=== PATIENT | male | born 1980 | race Native Hawaiian/Other Pacific Islander ===

== ENCOUNTER 2016-05-21 09:59 | Inpatient (IN) | payer OTHER ==
[~2016-05-21 09:59] MED LIST: PERCOCET1 TA3 PO; SOMA350 MG PO; ZANTAC300 MG PO
== END 2016-06-21 09:00 | disposition still patient (30) ==
LOC: PAVC 09:59
PROVIDERS: ADMIT Internal Medicine
DX: Z51.89 Encounter for other specified aftercare (principal)

== ENCOUNTER 2016-06-21 09:00 | Inpatient (IN) | payer OTHER | END 2016-07-22 13:10 | disposition still patient (30) | LOC: PAVC 09:00 | PROVIDERS: ADMIT Internal Medicine | DX: Z51.89 Encounter for other specified aftercare (principal) ==

== ENCOUNTER 2016-06-24 03:23 | Outpatient (CLI) | payer OTHER ==
[2016-06-24 03:52] LABS: PLATELET COUNT 247 K/uL (142-355)
[2016-06-24 03:57] LABS: POTASSIUM 3.6 mmol/L (3.6-5.2); SODIUM 134 mmol/L (136-145)
== END 2016-06-24 04:23 ==
LOC: LAB 03:23
PROVIDERS: Internal Medicine
DX: Z79.899 Other long term (current) drug therapy (principal); Z51.81 Encounter for therapeutic drug level monitoring
CPT/HCPCS: 36415; 80053; 85027

== ENCOUNTER 2016-07-22 13:18 | Inpatient (IN) | payer OTHER | END 2016-08-19 13:24 | disposition still patient (30) | LOC: PAVC 13:18 | PROVIDERS: ADMIT Internal Medicine | DX: Z51.89 Encounter for other specified aftercare (principal) ==

== ENCOUNTER 2016-08-04 16:28 | Outpatient (CLI) | payer OTHER | END 2016-08-04 18:28 | disposition home or self-care (01) | LOC: LAB 16:28 | DX: N39.0 Urinary tract infection, site not specified (principal); Z87.440 Personal history of urinary (tract) infections | CPT/HCPCS: 81000; 87077; 87086; 87088; 87186 ==

== ENCOUNTER 2016-08-08 09:21 | Outpatient (CLI) | payer OTHER ==
[~2016-08-08] VITALS: Ht 175.3 cm; Wt 63.5 kg
[2016-08-08 09:25] VITALS: BP 122/73; TEMP 98
== END 2016-08-08 19:08 | disposition home or self-care (01) ==
LOC: INF 09:21
DX: N39.0 Urinary tract infection, site not specified (principal)
CPT/HCPCS: 96365; 96366; J2185

== ENCOUNTER 2016-08-09 09:18 | Outpatient (CLI) | payer OTHER ==
[~2016-08-09] VITALS: Ht 195.6 cm; Wt 88.5 kg
[2016-08-09 09:25] VITALS: BP 124/78; TEMP 98.8
== END 2016-08-09 19:49 | disposition home or self-care (01) ==
LOC: INF 09:18
DX: N39.0 Urinary tract infection, site not specified (principal)
CPT/HCPCS: 96365; 96366; J2185

== ENCOUNTER 2016-08-10 09:25 | Outpatient (CLI) | payer OTHER ==
[~2016-08-10] VITALS: Ht 195.6 cm; Wt 88.5 kg
[2016-08-10 09:20] VITALS: BP 125/73; TEMP 98.8
== END 2016-08-10 20:11 | disposition home or self-care (01) ==
LOC: INF 09:25
DX: N39.0 Urinary tract infection, site not specified (principal)
CPT/HCPCS: 96365; 96366; J2185

== ENCOUNTER 2016-08-11 09:30 | Outpatient (CLI) | payer OTHER ==
[~2016-08-11] VITALS: Ht 195.6 cm; Wt 88.5 kg
[2016-08-11 09:40] VITALS: BP 114/70; TEMP 98
[2016-08-11 10:30] VITALS: BP 113/71; TEMP 98
== END 2016-08-11 23:40 | disposition home or self-care (01) ==
LOC: INF 09:30
DX: N39.0 Urinary tract infection, site not specified (principal)
CPT/HCPCS: 96365; 96366; J2185

== ENCOUNTER 2016-08-12 09:10 | Outpatient (CLI) | payer OTHER ==
[~2016-08-12] VITALS: Ht 195.6 cm; Wt 88.5 kg
[2016-08-12 09:15] VITALS: BP 136/77; TEMP 98.9
[2016-08-12 10:20] VITALS: BP 125/71; TEMP 98.9
== END 2016-08-12 18:58 | disposition home or self-care (01) ==
LOC: INF 09:10
DX: N39.0 Urinary tract infection, site not specified (principal)
CPT/HCPCS: 96365; J2185

== ENCOUNTER 2016-08-13 09:09 | Outpatient (CLI) | payer OTHER | END 2016-08-13 19:21 | disposition home or self-care (01) | LOC: INF 09:09 | DX: N39.0 Urinary tract infection, site not specified (principal) | CPT/HCPCS: 96365; 96366; J2185 ==

== ENCOUNTER 2016-08-14 09:27 | Outpatient (CLI) | payer OTHER ==
[2016-08-14 09:35] VITALS: BP 133/80; TEMP 98.8
== END 2016-08-14 19:30 | disposition home or self-care (01) ==
LOC: INF 09:27
DX: N39.0 Urinary tract infection, site not specified (principal)
CPT/HCPCS: 96365; 96366; J2185

== ENCOUNTER 2016-08-15 09:17 | Outpatient (CLI) | payer OTHER ==
[2016-08-15 09:15] VITALS: BP 121/75; TEMP 98.1
== END 2016-08-15 19:01 | disposition home or self-care (01) ==
LOC: INF 09:17
DX: N39.0 Urinary tract infection, site not specified (principal)
CPT/HCPCS: 96365; 96366; J2185

== ENCOUNTER 2016-08-16 09:17 | Outpatient (CLI) | payer OTHER ==
[2016-08-16 09:20] VITALS: BP 116/76; TEMP 98.7
== END 2016-08-16 18:57 | disposition home or self-care (01) ==
LOC: INF 09:17
DX: N39.0 Urinary tract infection, site not specified (principal)
CPT/HCPCS: 96365; 96366; J2185

== ENCOUNTER 2016-08-17 10:01 | Outpatient (CLI) | payer OTHER | END 2016-08-17 11:15 | disposition home or self-care (01) | LOC: INF 10:01 | DX: N39.0 Urinary tract infection, site not specified (principal) | CPT/HCPCS: 96365; J2185 ==

== ENCOUNTER 2016-08-19 13:53 | Inpatient (IN) | payer OTHER | END 2016-09-19 08:16 | disposition still patient (30) | LOC: PAVC 13:53 | PROVIDERS: ADMIT Internal Medicine | DX: Z51.89 Encounter for other specified aftercare (principal) ==

== ENCOUNTER 2016-09-02 13:49 | Outpatient (CLI) | payer OTHER | END 2016-09-02 19:15 | disposition home or self-care (01) | LOC: LAB 13:49 | DX: N39.8 Other specified disorders of urinary system (principal) | CPT/HCPCS: 81000 ==

== ENCOUNTER 2016-09-19 08:23 | Inpatient (IN) | payer OTHER | END 2016-10-19 11:01 | disposition still patient (30) | LOC: PAVC 08:23 | PROVIDERS: ADMIT Internal Medicine | DX: Z51.89 Encounter for other specified aftercare (principal) ==

== ENCOUNTER 2016-10-17 14:57 | Outpatient (CLI) | payer OTHER | END 2016-10-17 19:19 | disposition home or self-care (01) | LOC: LAB 14:57 | DX: Z16.24 Resistance to multiple antibiotics (principal) | CPT/HCPCS: 87081 ==

== ENCOUNTER 2016-10-19 11:07 | Inpatient (IN) | payer OTHER ==
[~2016-10-19] VITALS: Ht 185.4 cm; Wt 89.5 kg
== END 2016-11-19 11:13 | disposition still patient (30) ==
LOC: PAVC 11:07
PROVIDERS: ADMIT Internal Medicine
DX: Z51.89 Encounter for other specified aftercare (principal)

== ENCOUNTER 2016-10-21 12:15 | Outpatient (CLI) | payer OTHER ==
[~2016-10-21] VITALS: Ht 185.4 cm; Wt 89.5 kg
[2016-10-21 12:50] LABS: PLATELET COUNT 186 K/uL (142-355)
== END 2016-10-21 19:15 | disposition home or self-care (01) ==
LOC: INF 12:15 → LAB 12:15 → INF 19:15
PROVIDERS: Internal Medicine
DX: R50.9 Fever, unspecified (principal); L53.8 Other specified erythematous conditions; R52 Pain, unspecified
CPT/HCPCS: 81000; 85027; 87040; 96365; J0696

== ENCOUNTER 2016-10-21 13:38 | Outpatient (CLI) | payer OTHER ==
[2016-10-21 15:30] VITALS: BP 106/52; TEMP 100.1
[2016-10-21 16:50] VITALS: BP 109/65; TEMP 99.2
== END 2016-10-21 19:16 | disposition home or self-care (01) ==
LOC: INF 13:38 → RAD 13:38
DX: R50.9 Fever, unspecified (principal); L53.8 Other specified erythematous conditions; R52 Pain, unspecified
CPT/HCPCS: 96365

== ENCOUNTER 2016-10-22 09:03 | Outpatient (CLI) | payer OTHER ==
[~2016-10-22] VITALS: Ht 185.4 cm; Wt 89.4 kg
[2016-10-22 09:18] VITALS: BP 119/83; TEMP 99.3
[2016-10-22 10:08] VITALS: BP 120/73; TEMP 99.2
== END 2016-10-22 11:00 | disposition home or self-care (01) ==
LOC: INF 09:03
DX: L53.8 Other specified erythematous conditions (principal); R50.9 Fever, unspecified
CPT/HCPCS: 96365; 96366; J0696

== ENCOUNTER 2016-10-23 09:16 | Outpatient (CLI) | payer OTHER ==
[~2016-10-23] VITALS: Ht 185.4 cm; Wt 89.4 kg
[2016-10-23 09:20] VITALS: BP 132/67; TEMP 99.1
[2016-10-23 10:15] VITALS: BP 126/75; TEMP 99.1
== END 2016-10-23 11:00 | disposition home or self-care (01) ==
LOC: INF 09:16
DX: M79.661 Pain in right lower leg (principal)
CPT/HCPCS: 96365; 96366; J0696

== ENCOUNTER 2016-10-24 09:49 | Outpatient (CLI) | payer OTHER | END 2016-10-24 11:30 | disposition home or self-care (01) | LOC: INF 09:49 | DX: M79.661 Pain in right lower leg (principal) | CPT/HCPCS: 96365; 96366; J0696 ==

== ENCOUNTER 2016-10-25 10:39 | Outpatient (CLI) | payer OTHER | END 2016-10-25 21:54 | disposition home or self-care (01) | LOC: INF 10:39 | DX: M79.661 Pain in right lower leg (principal) | CPT/HCPCS: 96365; 96366; J0696 ==

== ENCOUNTER 2016-10-26 10:13 | Outpatient (CLI) | payer OTHER ==
[~2016-10-26] VITALS: Ht 185.4 cm; Wt 89.4 kg
[2016-10-26 10:05] VITALS: BP 124/70; TEMP 98.9
[2016-10-26 11:05] VITALS: BP 122/70; TEMP 98.5
== END 2016-10-26 19:21 | disposition home or self-care (01) ==
LOC: INF 10:13
DX: M79.661 Pain in right lower leg (principal); T24.1 Burn of first degree of lower limb, except ankle and foot
CPT/HCPCS: 96365; 96366; J0696

== ENCOUNTER 2016-10-27 10:09 | Outpatient (CLI) | payer OTHER ==
[~2016-10-27] VITALS: Ht 185.4 cm; Wt 89.4 kg
[2016-10-27 10:10] VITALS: BP 123/71; TEMP 98.6
[2016-10-27 11:10] VITALS: BP 120/76; TEMP 98.6
== END 2016-10-27 13:00 | disposition home or self-care (01) ==
LOC: INF 10:09
DX: M79.661 Pain in right lower leg (principal)
CPT/HCPCS: 96365; 96366; J0696

== ENCOUNTER 2016-10-29 10:13 | Outpatient (CLI) | payer OTHER ==
[~2016-10-29] VITALS: Ht 185.4 cm; Wt 89.4 kg
[2016-10-29 10:20] VITALS: BP 134/75; TEMP 98.5
[2016-10-29 11:20] VITALS: BP 126/71; TEMP 98.5
== END 2016-10-29 19:07 | disposition home or self-care (01) ==
LOC: LAB 10:13 → INF 10:13
DX: S81.801A Unspecified open wound, right lower leg, initial encounter (principal)
CPT/HCPCS: 87070; 87077; 87185; 87205; 96365; 96366; J0696

== ENCOUNTER 2016-10-30 09:08 | Outpatient (CLI) | payer OTHER ==
[~2016-10-30] VITALS: Ht 195.6 cm; Wt 89.4 kg
[2016-10-30 09:15] VITALS: BP 145/82
[2016-10-30 10:32] VITALS: BP 130/72; TEMP 98.4
== END 2016-10-30 19:29 | disposition home or self-care (01) ==
LOC: INF 09:08
DX: L03.115 Cellulitis of right lower limb (principal)
CPT/HCPCS: 96365; 96366; J0696

== ENCOUNTER 2016-10-31 10:24 | Outpatient (CLI) | payer OTHER | END 2016-10-31 21:07 | disposition home or self-care (01) | LOC: INF 10:24 | DX: L03.115 Cellulitis of right lower limb (principal) | CPT/HCPCS: 96365; J0696 ==

== ENCOUNTER 2016-11-19 11:18 | Inpatient (IN) | payer OTHER | END 2016-12-19 16:12 | disposition still patient (30) | LOC: PAVC 11:18 | PROVIDERS: ADMIT Internal Medicine | DX: Z51.89 Encounter for other specified aftercare (principal) ==

== ENCOUNTER 2016-12-19 16:16 | Inpatient (IN) | payer OTHER | END 2017-01-19 13:03 | disposition still patient (30) | LOC: PAVC 16:16 | PROVIDERS: ADMIT Internal Medicine | DX: Z51.89 Encounter for other specified aftercare (principal) ==

== ENCOUNTER 2016-12-21 03:44 | Outpatient (CLI) | payer OTHER ==
[2016-12-21 04:01] LABS: PLATELET COUNT 276 K/uL (142-355)
[2016-12-21 04:32] LABS: SODIUM 139 mmol/L (136-145)
== END 2016-12-21 04:45 | disposition home or self-care (01) ==
LOC: LAB 03:44
PROVIDERS: Internal Medicine
DX: M62.81 Muscle weakness (generalized) (principal); G89.4 Chronic pain syndrome
CPT/HCPCS: 36415; 80053; 85027

== ENCOUNTER 2016-12-23 15:23 | Outpatient (CLI) | payer OTHER | END 2016-12-23 19:07 | disposition home or self-care (01) | LOC: LAB 15:23 | DX: R79.89 Other specified abnormal findings of blood chemistry (principal) | CPT/HCPCS: 36415; 83735 ==

== ENCOUNTER 2017-01-06 04:19 | Outpatient (CLI) | payer OTHER | END 2017-01-06 19:09 | LOC: LAB 04:19 | DX: E87.6 Hypokalemia (principal) | CPT/HCPCS: 36415; 84132 ==

== ENCOUNTER 2017-01-07 03:59 | Outpatient (CLI) | payer OTHER ==
[2017-01-07 04:53] LABS: POTASSIUM 3.6 mmol/L (3.6-5.2); SODIUM 138 mmol/L (136-145)
[2017-01-07 05:52] LABS: PLATELET COUNT 282 K/uL (142-355)
== END 2017-01-07 19:13 | disposition home or self-care (01) ==
LOC: LAB 03:59
PROVIDERS: Internal Medicine
DX: M62.81 Muscle weakness (generalized) (principal); G89.4 Chronic pain syndrome; R82.99 Other abnormal findings in urine
CPT/HCPCS: 36415; 80053; 81000; 85027; 87086; 87088

== ENCOUNTER 2017-01-19 05:56 | Outpatient (CLI) | payer OTHER | END 2017-01-19 19:04 | disposition home or self-care (01) | LOC: LAB 05:56 | DX: E87.6 Hypokalemia (principal) | CPT/HCPCS: 36415; 84132 ==

== ENCOUNTER 2017-01-19 14:27 | Inpatient (IN) | payer OTHER ==
[2017-02-06] MEDS ORDERED: FURO40TA93 PO ×2 (19:05→19:06)
[2017-02-06] MEDS ORDERED: CLARITIN10 MG PO (19:05)
[2017-02-06] MEDS ORDERED: MULTIVITAMIN OR (19:06)
[2017-02-06] MEDS ORDERED: OXYC20TA3 PO (19:06)
[2017-02-06] MEDS ORDERED: PRED10TA27 PO (19:07)
[2017-02-06] MEDS ORDERED: POTASSIUM25 MEQ OR (19:07)
[2017-02-06] MEDS ORDERED: ZANTAC300 MG PO (19:08)
[2017-02-06] MEDS ORDERED: ASCO500T18 PO (19:08)
[2017-02-06] MEDS ORDERED: OMEP40CA PO (19:09)
[2017-02-06] MEDS ORDERED: ERTA1INJ2 INJ (19:11)
[2017-02-06] MEDS ORDERED: FIORICET 50-3001 CAP PO (19:11)
[2017-02-06] MEDS ORDERED: ALUMSUS6 PO (19:12)
[2017-02-06] MEDS ORDERED: SOMA350 MG PO (19:13)
== END 2017-02-19 10:02 | disposition still patient (30) ==
LOC: PAVC 14:27
PROVIDERS: ADMIT Internal Medicine
DX: Z51.89 Encounter for other specified aftercare (principal)

== ENCOUNTER 2017-02-04 16:07 | Outpatient (CLI) | payer OTHER | END 2017-02-04 19:37 | disposition home or self-care (01) | LOC: LAB 16:07 | DX: R50.9 Fever, unspecified (principal) | CPT/HCPCS: 81000; 87077; 87086; 87088; 87186 ==

== ENCOUNTER 2017-02-06 13:47 | Outpatient (CLI) | payer OTHER ==
[2017-02-06] MEDS ORDERED: FURO40TA93 PO ×2 (19:05→19:06)
[2017-02-06] MEDS ORDERED: CLARITIN10 MG PO (19:05)
[2017-02-06] MEDS ORDERED: MULTIVITAMIN OR (19:06)
[2017-02-06] MEDS ORDERED: OXYC20TA3 PO (19:06)
[2017-02-06] MEDS ORDERED: PRED10TA27 PO (19:07)
[2017-02-06] MEDS ORDERED: POTASSIUM25 MEQ OR (19:07)
[2017-02-06] MEDS ORDERED: ASCO500T18 PO (19:08)
[2017-02-06] MEDS ORDERED: ZANTAC300 MG PO (19:08)
[2017-02-06] MEDS ORDERED: OMEP40CA PO (19:09)
[2017-02-06] MEDS ORDERED: FIORICET 50-3001 CAP PO (19:11)
[2017-02-06] MEDS ORDERED: ERTA1INJ2 INJ (19:11)
[2017-02-06] MEDS ORDERED: ALUMSUS6 PO (19:12)
[2017-02-06] MEDS ORDERED: SOMA350 MG PO (19:13)
== END 2017-02-06 14:50 | disposition home or self-care (01) ==
LOC: INF 13:47
DX: N39.0 Urinary tract infection, site not specified (principal)
CPT/HCPCS: 36415; 36591; 87040; 96365; J1335

== ENCOUNTER 2017-02-06 18:52 | Emergency (ER) | payer OTHER ==
[~2017-02-06] VITALS: Ht 195.6 cm; Wt 90.7 kg
[2017-02-06] MEDS ORDERED: CLARITIN10 MG PO (19:05)
[2017-02-06] MEDS ORDERED: FURO40TA93 PO ×2 (19:05→19:06)
[2017-02-06] MEDS ORDERED: MULTIVITAMIN OR (19:06)
[2017-02-06] MEDS ORDERED: OXYC20TA3 PO (19:06)
[2017-02-06] MEDS ORDERED: PRED10TA27 PO (19:07)
[2017-02-06] MEDS ORDERED: POTASSIUM25 MEQ OR (19:07)
[2017-02-06] MEDS ORDERED: ASCO500T18 PO (19:08)
[2017-02-06] MEDS ORDERED: ZANTAC300 MG PO (19:08)
[2017-02-06] MEDS ORDERED: OMEP40CA PO (19:09)
[2017-02-06] MEDS ORDERED: ERTA1INJ2 INJ (19:11)
[2017-02-06] MEDS ORDERED: FIORICET 50-3001 CAP PO (19:11)
[2017-02-06] MEDS ORDERED: ALUMSUS6 PO (19:12)
[2017-02-06] MEDS ORDERED: SOMA350 MG PO (19:13)
[2017-02-06 22:28] VITALS: BP 133/86; TEMP 98.3
== END 2017-02-06 22:25 ==
LOC: ED 18:52
DX: L03.116 Cellulitis of left lower limb (principal)
CPT/HCPCS: 36415; 96365; 99284

== ENCOUNTER 2017-02-07 04:07 | Outpatient (CLI) | payer OTHER ==
[~2017-02-07 04:07] MED LIST changes: +ALUMSUS6 PO; +ASCO500T18 PO; +CLARITIN10 MG PO; +ERTA1INJ2 INJ; +FIORICET 50-3001 CAP PO; +FURO40TA93 PO; +MULTIVITAMIN OR; +OMEP40CA PO; +OXYC20TA3 PO; +POTASSIUM25 MEQ OR; +PRED10TA27 PO
== END 2017-02-07 23:30 | disposition home or self-care (01) ==
LOC: INF 04:07
DX: N39.0 Urinary tract infection, site not specified (principal)
CPT/HCPCS: 96365; 96366; J1335

== ENCOUNTER 2017-02-08 09:36 | Outpatient (CLI) | payer OTHER ==
[~2017-02-08] VITALS: Ht 182.9 cm; Wt 90.7 kg
== END 2017-02-08 11:32 | disposition home or self-care (01) ==
LOC: INF 09:36
DX: N39.0 Urinary tract infection, site not specified (principal)
CPT/HCPCS: 96365; J1335

== ENCOUNTER 2017-02-09 09:33 | Outpatient (CLI) | payer OTHER ==
[~2017-02-09] VITALS: Ht 182.9 cm; Wt 90.7 kg
[2017-02-09 09:20] VITALS: BP 102/58; TEMP 98.3
[2017-02-09 11:15] VITALS: BP 100/60; TEMP 98.3
== END 2017-02-09 19:01 | disposition home or self-care (01) ==
LOC: INF 09:33
DX: N39.0 Urinary tract infection, site not specified (principal)
CPT/HCPCS: 96365; J1335

== ENCOUNTER 2017-02-10 09:19 | Outpatient (CLI) | payer OTHER ==
[~2017-02-10] VITALS: Ht 182.9 cm; Wt 90.7 kg
[2017-02-10 09:20] VITALS: BP 129/85; TEMP 98.9
[2017-02-10 10:18] VITALS: BP 121/84; TEMP 98.9
== END 2017-02-10 10:15 | disposition home or self-care (01) ==
LOC: INF 09:19
DX: R60.0 Localized edema (principal); N39.0 Urinary tract infection, site not specified
CPT/HCPCS: 96365; J1335

== ENCOUNTER 2017-02-11 09:07 | Outpatient (CLI) | payer OTHER ==
[~2017-02-11] VITALS: Ht 182.9 cm; Wt 90.7 kg
[2017-02-11 09:00] VITALS: BP 121/81; TEMP 97.5
[2017-02-11 10:15] VITALS: BP 125/85
== END 2017-02-11 22:00 | disposition home or self-care (01) ==
LOC: INF 09:07
DX: R60.0 Localized edema (principal); N39.0 Urinary tract infection, site not specified
CPT/HCPCS: 96365; J1335

== ENCOUNTER 2017-02-12 09:08 | Outpatient (CLI) | payer OTHER ==
[~2017-02-12] VITALS: Ht 152.4 cm; Wt 1.8 kg
== END 2017-02-12 19:05 | disposition home or self-care (01) ==
LOC: INF 09:08
DX: N39.0 Urinary tract infection, site not specified (principal)
CPT/HCPCS: 96365; J1335

== ENCOUNTER 2017-02-15 10:39 | Outpatient (CLI) | payer OTHER | END 2017-02-15 11:40 | disposition home or self-care (01) | LOC: LAB 10:39 | DX: N39.0 Urinary tract infection, site not specified (principal) | CPT/HCPCS: 81000 ==

== ENCOUNTER 2017-02-19 10:07 | Inpatient (IN) | payer OTHER | END 2017-03-21 09:39 | disposition still patient (30) | LOC: PAVC 10:07 | PROVIDERS: ADMIT Internal Medicine | DX: Z51.89 Encounter for other specified aftercare (principal) ==

== ENCOUNTER 2017-02-25 12:26 | Outpatient (CLI) | payer OTHER | END 2017-02-25 13:30 | disposition home or self-care (01) | LOC: RAD 12:26 | DX: L03.031 Cellulitis of right toe (principal) ==

== ENCOUNTER 2017-03-21 09:44 | Inpatient (IN) | payer OTHER | END 2017-04-21 14:23 | disposition still patient (30) | LOC: PAVC 09:44 | PROVIDERS: ADMIT Internal Medicine ==

== ENCOUNTER 2017-04-21 15:29 | Inpatient (IN) | payer OTHER | END 2017-05-21 10:34 | disposition still patient (30) | LOC: PAVC 15:29 | PROVIDERS: ADMIT Internal Medicine ==

== ENCOUNTER 2017-05-21 11:10 | Inpatient (IN) | payer OTHER | END 2017-06-21 11:18 | disposition still patient (30) | LOC: PAVC 11:10 | PROVIDERS: ADMIT Internal Medicine ==

== ENCOUNTER 2017-06-03 23:30 | Outpatient (CLI) | payer OTHER | END 2017-06-03 23:59 | disposition home or self-care (01) | LOC: LAB 23:30 | DX: R19.7 Diarrhea, unspecified (principal) | CPT/HCPCS: 87015; 87045; 87324; 87328; 87329; 87449; 87899 ==

== ENCOUNTER 2017-06-17 17:19 | Outpatient (CLI) | payer OTHER | END 2017-06-17 22:34 | disposition home or self-care (01) | LOC: LABW 17:19 | DX: Z09 Encounter for follow-up examination after completed treatment for conditions other than malignant neoplasm (principal) | CPT/HCPCS: 87015; 87045; 87899 ==

== ENCOUNTER 2017-06-21 11:27 | Inpatient (IN) | payer OTHER | END 2017-07-22 11:16 | disposition still patient (30) | LOC: PAVC 11:27 | PROVIDERS: ADMIT Internal Medicine ==

== ENCOUNTER 2017-06-21 14:04 | Outpatient (CLI) | payer OTHER | END 2017-06-21 20:16 | disposition home or self-care (01) | LOC: LAB 14:04 | DX: Z09 Encounter for follow-up examination after completed treatment for conditions other than malignant neoplasm (principal) | CPT/HCPCS: 87015; 87045; 87324; 87328; 87329; 87449; 87899 ==

== ENCOUNTER 2017-06-23 04:47 | Outpatient (CLI) | payer OTHER ==
[2017-06-23 05:27] LABS: PLATELET COUNT 344 K/uL (142-355)
[2017-06-23 05:51] LABS: POTASSIUM 4.1 mmol/L (3.6-5.2); SODIUM 138 mmol/L (136-145)
== END 2017-06-23 21:33 | disposition home or self-care (01) ==
LOC: LAB 04:47
PROVIDERS: Internal Medicine
DX: M62.81 Muscle weakness (generalized) (principal); G89.4 Chronic pain syndrome
CPT/HCPCS: 36415; 80053; 85027

== ENCOUNTER 2017-06-25 02:59 | Outpatient (CLI) | payer OTHER | END 2017-06-26 05:16 | disposition home or self-care (01) | LOC: LAB 02:59 | DX: R30.0 Dysuria (principal) | CPT/HCPCS: 81000; 87077; 87086; 87088; 87186 ==

== ENCOUNTER 2017-07-07 15:49 | Outpatient (CLI) | payer OTHER | END 2017-07-07 19:59 | disposition home or self-care (01) | LOC: LAB 15:49 | DX: R05 Cough (principal); R50.9 Fever, unspecified | CPT/HCPCS: 87804 ==

== ENCOUNTER 2017-07-22 11:20 | Inpatient (IN) | payer OTHER | END 2017-08-19 10:42 | disposition still patient (30) | LOC: PAVC 11:20 | PROVIDERS: ADMIT Internal Medicine ==

== ENCOUNTER 2017-08-19 11:12 | Inpatient (IN) | payer OTHER | END 2017-09-19 08:00 | disposition still patient (30) | LOC: PAVC 11:12 | PROVIDERS: ADMIT Internal Medicine ==

== ENCOUNTER 2017-09-19 09:00 | Inpatient (IN) | payer OTHER | END 2017-10-19 10:34 | disposition still patient (30) | LOC: PAVC 09:00 | PROVIDERS: ADMIT Internal Medicine ==

== ENCOUNTER 2017-10-19 11:09 | Inpatient (IN) | payer OTHER | END 2017-11-19 10:27 | disposition still patient (30) | LOC: PAVC 11:09 | PROVIDERS: ADMIT Internal Medicine ==

== ENCOUNTER 2017-11-19 10:33 | Inpatient (IN) | payer OTHER | END 2017-12-19 15:08 | disposition still patient (30) | LOC: PAVC 10:33 | PROVIDERS: ADMIT Internal Medicine ==

== ENCOUNTER 2017-11-28 14:26 | Outpatient (CLI) | payer OTHER | END 2017-11-28 19:11 | disposition home or self-care (01) | LOC: LAB 14:26 | DX: R82.99 Other abnormal findings in urine (principal); R50.9 Fever, unspecified | CPT/HCPCS: 81000; 87077; 87086; 87088; 87186 ==

== ENCOUNTER 2017-12-13 16:13 | Outpatient (CLI) | payer OTHER | END 2017-12-13 22:15 | disposition home or self-care (01) | LOC: LAB 16:13 | DX: N39.0 Urinary tract infection, site not specified (principal) | CPT/HCPCS: 81000; 87077; 87086; 87088; 87186 ==

== ENCOUNTER 2017-12-19 15:14 | Inpatient (IN) | payer OTHER | END 2018-01-19 08:00 | disposition still patient (30) | LOC: PAVC 15:14 | PROVIDERS: ADMIT Internal Medicine | CPT/HCPCS: 87077; 87086; 87088; 87186; J2185 ==

== ENCOUNTER 2017-12-27 03:50 | Outpatient (CLI) | payer OTHER | END 2017-12-27 20:11 | disposition home or self-care (01) | LOC: INF 03:50 | DX: N39.0 Urinary tract infection, site not specified (principal) | CPT/HCPCS: 96365; 96366; J2185 ==

== ENCOUNTER 2017-12-28 13:10 | Outpatient (CLI) | payer OTHER ==
[~2017-12-28] VITALS: Ht 195.6 cm; Wt 81.2 kg
== END 2017-12-28 19:10 | disposition home or self-care (01) ==
LOC: INF 13:10
DX: N39.0 Urinary tract infection, site not specified (principal)
CPT/HCPCS: 96365; J2185

== ENCOUNTER 2017-12-29 02:04 | Outpatient (CLI) | payer OTHER | END 2017-12-29 23:17 | disposition home or self-care (01) | LOC: INF 02:04 | DX: N39.0 Urinary tract infection, site not specified (principal) | CPT/HCPCS: 96365; 96366; J2185 ==

== ENCOUNTER 2017-12-30 03:04 | Outpatient (CLI) | payer OTHER ==
[~2017-12-30] VITALS: Ht 193 cm; Wt 97.5 kg
== END 2017-12-30 21:13 | disposition home or self-care (01) ==
LOC: INF 03:04
DX: N39.0 Urinary tract infection, site not specified (principal)
CPT/HCPCS: 96365; 96366; J2185

== ENCOUNTER 2017-12-31 01:48 | Outpatient (CLI) | payer OTHER ==
[~2017-12-31] VITALS: Ht 162.6 cm; Wt 72.6 kg
== END 2017-12-31 22:00 | disposition home or self-care (01) ==
LOC: INF 01:48
DX: N39.0 Urinary tract infection, site not specified (principal)
CPT/HCPCS: 96365; 96366; J2185

== ENCOUNTER 2018-01-01 01:51 | Outpatient (CLI) | payer OTHER | END 2018-01-01 19:36 | disposition home or self-care (01) | LOC: INF 01:51 | DX: N39.0 Urinary tract infection, site not specified (principal) | CPT/HCPCS: 96365; 96366; J2185 ==

== ENCOUNTER 2018-01-02 01:43 | Outpatient (CLI) | payer OTHER | END 2018-01-02 22:34 | disposition home or self-care (01) | LOC: INF 01:43 | DX: N39.0 Urinary tract infection, site not specified (principal) | CPT/HCPCS: 96365; 96366; J2185 ==

== ENCOUNTER 2018-01-03 01:44 | Outpatient (CLI) | payer OTHER ==
[~2018-01-03] VITALS: Ht 190.5 cm; Wt 81.2 kg
== END 2018-01-03 22:59 | disposition home or self-care (01) ==
LOC: INF 01:44
DX: N39.0 Urinary tract infection, site not specified (principal)
CPT/HCPCS: 96365; 96366; J2185

== ENCOUNTER 2018-01-04 01:49 | Outpatient (CLI) | payer OTHER | END 2018-01-04 23:42 | disposition home or self-care (01) | LOC: INF 01:49 | DX: N39.0 Urinary tract infection, site not specified (principal) | CPT/HCPCS: 96365; J2185 ==

== ENCOUNTER 2018-01-19 09:00 | Inpatient (IN) | payer OTHER | END 2018-02-19 11:14 | disposition still patient (30) | LOC: PAVC 09:00 | PROVIDERS: ADMIT Internal Medicine ==

== ENCOUNTER 2018-01-20 05:10 | Outpatient (CLI) | payer OTHER ==
[2018-01-20 07:53] LABS: PLATELET COUNT 408 K/uL (142-355)
[2018-01-20 08:35] LABS: POTASSIUM 3.4 mmol/L (3.6-5.2)
== END 2018-01-20 19:07 | disposition home or self-care (01) ==
LOC: LAB 05:10
PROVIDERS: Internal Medicine
DX: M62.81 Muscle weakness (generalized) (principal); G89.4 Chronic pain syndrome
CPT/HCPCS: 36415; 80053; 85027

== ENCOUNTER 2018-01-28 05:17 | Outpatient (CLI) | payer OTHER | END 2018-01-28 19:49 | disposition home or self-care (01) | LOC: LAB 05:17 | DX: E87.6 Hypokalemia (principal) | CPT/HCPCS: 84132 ==

== ENCOUNTER 2018-02-19 11:18 | Inpatient (IN) | payer OTHER | END 2018-03-21 15:07 | disposition still patient (30) | LOC: PAVC 11:18 | PROVIDERS: ADMIT Internal Medicine ==

== ENCOUNTER 2018-03-05 15:24 | Outpatient (CLI) | payer OTHER | END 2018-03-05 19:05 | disposition home or self-care (01) | LOC: LAB 15:24 | DX: T81.89XA Other complications of procedures, not elsewhere classified, initial encounter (principal) | CPT/HCPCS: 87070; 87077; 87186; 87205 ==

== ENCOUNTER 2018-03-09 11:13 | Outpatient (CLI) | payer OTHER ==
[~2018-03-09] VITALS: Ht 190.5 cm; Wt 76.2 kg
[2018-03-09 11:10] VITALS: BP 116/80; TEMP 98.8
[2018-03-09 13:03] VITALS: BP 100/72; TEMP 98.4
== END 2018-03-09 19:39 | disposition home or self-care (01) ==
LOC: INF 11:13
DX: L89.159 Pressure ulcer of sacral region, unspecified stage (principal)
CPT/HCPCS: 96365; J1335

== ENCOUNTER 2018-03-10 12:01 | Outpatient (CLI) | payer OTHER ==
[~2018-03-10] VITALS: Ht 190.5 cm; Wt 76.2 kg
[2018-03-10 13:13] VITALS: BP 129/78; TEMP 97.6
[2018-03-10 14:17] VITALS: BP 107/73; TEMP 98.5
== END 2018-03-10 22:10 | disposition home or self-care (01) ==
LOC: INF 12:01
DX: L89.159 Pressure ulcer of sacral region, unspecified stage (principal)
CPT/HCPCS: 96365; J1335

== ENCOUNTER 2018-03-11 10:24 | Outpatient (CLI) | payer OTHER ==
[~2018-03-11] VITALS: Ht 190.5 cm; Wt 76.2 kg
[2018-03-11 11:52] VITALS: BP 113/76; TEMP 97.8
[2018-03-11 12:54] VITALS: BP 111/73; TEMP 98
== END 2018-03-11 22:18 | disposition home or self-care (01) ==
LOC: INF 10:24
DX: L89.159 Pressure ulcer of sacral region, unspecified stage (principal)
CPT/HCPCS: 96365; J1335

== ENCOUNTER 2018-03-12 13:01 | Outpatient (CLI) | payer OTHER | END 2018-03-12 19:56 | disposition home or self-care (01) | LOC: INF 13:01 | DX: L89.159 Pressure ulcer of sacral region, unspecified stage (principal) | CPT/HCPCS: 96365; J1335 ==

== ENCOUNTER 2018-03-13 12:04 | Outpatient (CLI) | payer OTHER | END 2018-03-13 22:18 | disposition home or self-care (01) | LOC: INF 12:04 | DX: L89.159 Pressure ulcer of sacral region, unspecified stage (principal) | CPT/HCPCS: 96365; J1335 ==

== ENCOUNTER 2018-03-14 11:53 | Outpatient (CLI) | payer OTHER ==
[2018-03-14 12:57] LABS: PLATELET COUNT 406 K/uL (142-355)
== END 2018-03-14 23:31 | disposition home or self-care (01) ==
LOC: INF 11:53
DX: R53.1 Weakness (principal); L89.159 Pressure ulcer of sacral region, unspecified stage
CPT/HCPCS: 85027; 96365; J1335

== ENCOUNTER 2018-03-15 12:37 | Outpatient (CLI) | payer OTHER | END 2018-03-15 23:28 | disposition home or self-care (01) | LOC: INF 12:37 | DX: L89.154 Pressure ulcer of sacral region, stage 4 (principal) | CPT/HCPCS: 96365; J1335 ==

== ENCOUNTER 2018-03-16 12:59 | Outpatient (CLI) | payer OTHER | END 2018-03-16 21:04 | disposition home or self-care (01) | LOC: INF 12:59 | DX: L89.159 Pressure ulcer of sacral region, unspecified stage (principal) | CPT/HCPCS: 96365; J1335 ==

== ENCOUNTER 2018-03-17 12:57 | Outpatient (CLI) | payer OTHER | END 2018-03-17 19:37 | disposition home or self-care (01) | LOC: INF 12:57 | DX: L89.159 Pressure ulcer of sacral region, unspecified stage (principal) | CPT/HCPCS: 96365; J1335 ==

== ENCOUNTER 2018-03-18 13:03 | Outpatient (CLI) | payer OTHER | END 2018-03-18 19:08 | disposition home or self-care (01) | LOC: INF 13:03 | DX: L89.159 Pressure ulcer of sacral region, unspecified stage (principal) | CPT/HCPCS: 96365; J1335 ==

== ENCOUNTER 2018-03-21 16:18 | Inpatient (IN) | payer OTHER | END 2018-04-21 10:42 | disposition still patient (30) | LOC: PAVC 16:18 | PROVIDERS: ADMIT Internal Medicine ==

== ENCOUNTER 2018-03-22 13:05 | Outpatient (CLI) | payer OTHER | END 2018-03-22 23:06 | disposition home or self-care (01) | LOC: MRI 13:05 | DX: L89.159 Pressure ulcer of sacral region, unspecified stage (principal) ==

== ENCOUNTER 2018-04-07 11:37 | Outpatient (CLI) | payer OTHER ==
[2018-04-07 12:11] LABS: PLATELET COUNT 225 K/uL (142-355)
[2018-04-07 12:18] LABS: POTASSIUM 3.7 mmol/L (3.6-5.2)
== END 2018-04-07 20:09 | disposition home or self-care (01) ==
LOC: LAB 11:37
PROVIDERS: Internal Medicine
DX: R11.2 Nausea with vomiting, unspecified (principal); R50.81 Fever presenting with conditions classified elsewhere
CPT/HCPCS: 36415; 80053; 81000; 85027; 87077; 87086; 87088; 87186

== ENCOUNTER 2018-04-08 12:45 | Outpatient (CLI) | payer OTHER | END 2018-04-08 20:19 | disposition home or self-care (01) | LOC: RAD 12:45 | DX: K25.9 Gastric ulcer, unspecified as acute or chronic, without hemorrhage or perforation (principal) ==

== ENCOUNTER 2018-04-21 10:53 | Inpatient (IN) | payer OTHER | END 2018-05-21 07:08 | disposition still patient (30) | LOC: PAVC 10:53 | PROVIDERS: ADMIT Internal Medicine ==

== ENCOUNTER 2018-05-21 07:12 | Inpatient (IN) | payer OTHER | END 2018-06-21 09:41 | disposition still patient (30) | LOC: PAVC 07:12 | PROVIDERS: ADMIT Internal Medicine ==

== ENCOUNTER 2018-06-01 11:22 | Outpatient (CLI) | payer OTHER | END 2018-06-01 23:02 | disposition home or self-care (01) | LOC: LAB 11:22 | DX: L03.116 Cellulitis of left lower limb (principal) | CPT/HCPCS: 87070; 87077; 87185; 87186; 87205 ==

== ENCOUNTER 2018-06-17 17:19 | Outpatient (CLI) | payer OTHER | END 2018-06-17 20:51 | disposition home or self-care (01) | LOC: LAB 17:19 | DX: L08.9 Local infection of the skin and subcutaneous tissue, unspecified (principal) | CPT/HCPCS: 87070; 87077; 87186; 87205 ==

== ENCOUNTER 2018-06-21 10:14 | Inpatient (IN) | payer OTHER | END 2018-07-22 08:42 | disposition still patient (30) | LOC: PAVC 10:14 | PROVIDERS: ADMIT Internal Medicine ==

== ENCOUNTER 2018-07-22 09:15 | Inpatient (IN) | payer OTHER | END 2018-08-19 13:53 | disposition still patient (30) | LOC: PAVC 09:15 | PROVIDERS: ADMIT Internal Medicine ==

== ENCOUNTER 2018-08-19 14:06 | Inpatient (IN) | payer OTHER | END 2018-09-19 13:05 | disposition still patient (30) | LOC: PAVC 14:06 | PROVIDERS: ADMIT Internal Medicine ==

== ENCOUNTER 2018-09-09 15:00 | Outpatient (CLI) | payer OTHER | END 2018-09-09 19:57 | disposition home or self-care (01) | LOC: LAB 15:00 | DX: N39.0 Urinary tract infection, site not specified (principal) | CPT/HCPCS: 81000; 87077; 87086; 87088; 87185; 87186 ==

== ENCOUNTER 2018-09-19 13:13 | Inpatient (IN) | payer OTHER | END 2018-10-19 15:57 | disposition still patient (30) | LOC: PAVC 13:13 | PROVIDERS: ADMIT Internal Medicine ==

== ENCOUNTER 2018-09-19 16:38 | Outpatient (CLI) | payer OTHER | END 2018-09-19 20:30 | disposition home or self-care (01) | LOC: LABW 16:38 | DX: Z79.2 Long term (current) use of antibiotics (principal); N39.0 Urinary tract infection, site not specified | CPT/HCPCS: 81000; 87088 ==

== ENCOUNTER 2018-10-19 16:36 | Inpatient (IN) | payer OTHER | END 2018-11-19 09:42 | disposition still patient (30) | LOC: PAVC 16:36 | PROVIDERS: ADMIT Internal Medicine | DX: Z51.89 Encounter for other specified aftercare (principal) ==

== ENCOUNTER 2018-10-31 11:16 | Outpatient (CLI) | payer OTHER | END 2018-10-31 22:46 | disposition home or self-care (01) | LOC: LAB 11:16 | DX: R82.998 Other abnormal findings in urine (principal) | CPT/HCPCS: 80307 ==

== ENCOUNTER 2018-11-01 15:23 | Outpatient (CLI) | payer OTHER | END 2018-11-01 21:19 | disposition home or self-care (01) | LOC: LAB 15:23 | DX: N39.0 Urinary tract infection, site not specified (principal) | CPT/HCPCS: 81000; 87077; 87086; 87088; 87186 ==

== ENCOUNTER 2018-11-14 13:53 | Outpatient (CLI) | payer OTHER | END 2018-11-14 22:21 | disposition home or self-care (01) | LOC: LABW 13:53 | DX: N39.0 Urinary tract infection, site not specified (principal) | CPT/HCPCS: 81000; 87077; 87086; 87088; 87186 ==

== ENCOUNTER 2018-11-19 09:46 | Inpatient (IN) | payer OTHER | END 2018-12-19 13:50 | disposition still patient (30) | LOC: PAVC 09:46 | PROVIDERS: ADMIT Internal Medicine ==

== ENCOUNTER 2018-11-28 15:33 | Outpatient (CLI) | payer OTHER | END 2018-11-28 19:21 | disposition home or self-care (01) | LOC: LAB 15:33 | DX: N39.0 Urinary tract infection, site not specified (principal); R82.998 Other abnormal findings in urine; Z79.01 Long term (current) use of anticoagulants | CPT/HCPCS: 81000 ==

== ENCOUNTER 2018-12-19 14:05 | Inpatient (IN) | payer OTHER ==
[~2018-12-19] VITALS: Ht 190.5 cm; Wt 77.6 kg
== END 2019-01-19 12:34 | disposition still patient (30) ==
LOC: PAVC 14:05
PROVIDERS: ADMIT Internal Medicine
CPT/HCPCS: J1335

== ENCOUNTER 2018-12-28 04:02 | Outpatient (CLI) | payer OTHER ==
[2018-12-28 06:09] LABS: PLATELET COUNT 297 K/uL (142-355)
[2018-12-28 06:26] LABS: POTASSIUM 4.4 mmol/L (3.6-5.2)
== END 2018-12-28 22:30 | disposition home or self-care (01) ==
LOC: LAB 04:02
PROVIDERS: Internal Medicine
DX: M62.81 Muscle weakness (generalized) (principal); G82.20 Paraplegia, unspecified; L89.154 Pressure ulcer of sacral region, stage 4
CPT/HCPCS: 36415; 80053; 85027

== ENCOUNTER 2019-01-03 14:55 | Outpatient (CLI) | payer OTHER | END 2019-01-03 23:30 | disposition home or self-care (01) | LOC: LAB 14:55 | DX: R82.90 Unspecified abnormal findings in urine (principal) | CPT/HCPCS: 81000; 87077; 87086; 87088; 87186 ==

== ENCOUNTER 2019-01-19 12:49 | Inpatient (IN) | payer OTHER ==
[2019-01-24] MEDS ORDERED: SOMA350 MG PO ×2 (19:44→20:20)
[2019-01-24] MEDS ORDERED: FURO20TA67 PO (19:48)
[2019-01-24] MEDS ORDERED: SPIR50TA8 PO (19:55)
[2019-01-24] MEDS ORDERED: ASPI325T40 PO (19:57)
[2019-01-24] MEDS ORDERED: LEXAPRO20 MG (20:02)
[2019-01-24] MEDS ORDERED: MIRALAX3350 N1 PO (20:07)
[2019-01-24] MEDS ORDERED: MONT10TA PO (20:14)
[2019-01-24] MEDS ORDERED: K-TAB20 MEQ PO (20:15)
[2019-01-24] MEDS ORDERED: RANI150T78 PO (20:17)
[2019-01-24] MEDS ORDERED: ONDA4TAB3 PO (20:35)
[2019-01-30] MEDS ORDERED: ALUMSUS6 PO (16:13)
[2019-01-30] MEDS ORDERED: ASCO500T18 PO (16:13)
[2019-01-30] MEDS ORDERED: FIORICET 50-3001 CAP PO (16:14)
[2019-01-30] MEDS ORDERED: ASPI325T40 PO (16:14)
[2019-01-30] MEDS ORDERED: CLARITIN10 MG PO (16:15)
[2019-01-30] MEDS ORDERED: MULTIVITAMIN OR (16:16)
[2019-01-30] MEDS ORDERED: PRED10TA27 PO (16:17)
[2019-01-30] MEDS ORDERED: MIRALAX3350 N1 PO (16:17)
== END 2019-02-19 17:19 | disposition still patient (30) ==
LOC: PAVC 12:49
PROVIDERS: ADMIT Internal Medicine

== ENCOUNTER 2019-01-24 14:44 | Inpatient (IN) | payer OTHER ==
[~2019-01-24] VITALS: Ht 190.5 cm; Wt 81.4 kg
[2019-01-24 15:07] VITALS: BP 115/80; TEMP 98.6; Ht 190.5 cm; Wt 81.4 kg
[2019-01-24] MEDS ORDERED: SOMA350 MG PO ×2 (19:44→20:20)
[2019-01-24] MEDS ORDERED: FURO20TA67 PO (19:48)
[2019-01-24] MEDS ORDERED: SPIR50TA8 PO (19:55)
[2019-01-24 19:56] VITALS: BP 117/71; TEMP 99.7
[2019-01-24] MEDS ORDERED: ASPI325T40 PO (19:57)
[2019-01-24] MEDS ORDERED: LEXAPRO20 MG (20:02)
[2019-01-24] MEDS ORDERED: MIRALAX3350 N1 PO (20:07)
[2019-01-24] MEDS ORDERED: MONT10TA PO (20:14)
[2019-01-24] MEDS ORDERED: K-TAB20 MEQ PO (20:15)
[2019-01-24] MEDS ORDERED: RANI150T78 PO (20:17)
[2019-01-24] MEDS ORDERED: ONDA4TAB3 PO (20:35)
[2019-01-24 23:55] VITALS: BP 125/79; TEMP 98.4
[2019-01-25 03:50] VITALS: BP 122/80; TEMP 98.4
[2019-01-25 08:00] VITALS: BP 99/57; TEMP 97.96
[2019-01-25 12:00] VITALS: BP 110/71; TEMP 97.9
[2019-01-25 16:00] VITALS: BP 103/65; TEMP 97.3
[2019-01-25 19:56] VITALS: BP 97/66; TEMP 98
[2019-01-26] VITALS: BP 101/67; TEMP 97.9
[2019-01-26 04:00] VITALS: BP 109/63; TEMP 98.3
[2019-01-26 08:00] VITALS: BP 110/57; TEMP 98.2
[2019-01-26 12:00] VITALS: BP 106/70; TEMP 98.1
[2019-01-26 16:00] VITALS: BP 118/71; TEMP 98
[2019-01-26 20:00] VITALS: BP 118/76; TEMP 98
[2019-01-27] VITALS (7 sets, daily range): BP systolic 94–119; BP diastolic 49–75; TEMP 97.6–98.4
[2019-01-28 03:53] VITALS: BP 91/41; TEMP 98.1
[2019-01-28 08:00] VITALS: BP 94/43; TEMP 98
[2019-01-28 12:00] VITALS: BP 113/76; TEMP 98.2
[2019-01-28 16:00] VITALS: BP 118/83; TEMP 98
[2019-01-28 20:00] VITALS: BP 117/79; TEMP 98.1
[2019-01-29] VITALS: BP 98/50; TEMP 97.7
[2019-01-29 04:00] VITALS: BP 83/47; TEMP 98.3
[2019-01-29 08:00] VITALS: BP 84/41; TEMP 97.9
[2019-01-29 12:00] VITALS: BP 111/72; TEMP 97.8
[2019-01-29 16:00] VITALS: BP 119/71; TEMP 97.4
[2019-01-29 20:00] VITALS: BP 113/76; TEMP 98.2
[2019-01-30] VITALS: BP 102/56; TEMP 98
[2019-01-30 04:00] VITALS: BP 87/41; TEMP 98.1
[2019-01-30 05:33] LABS: PLATELET COUNT 306 K/uL (142-355)
[2019-01-30 05:50] LABS: POTASSIUM 3.6 mmol/L (3.6-5.2)
[2019-01-30 08:00] VITALS: BP 96/55; TEMP 98.3
[2019-01-30] MEDS ORDERED: ALUMSUS6 PO (16:13)
[2019-01-30] MEDS ORDERED: ASCO500T18 PO (16:13)
[2019-01-30] MEDS ORDERED: ASPI325T40 PO (16:14)
[2019-01-30] MEDS ORDERED: FIORICET 50-3001 CAP PO (16:14)
[2019-01-30] MEDS ORDERED: CLARITIN10 MG PO (16:15)
[2019-01-30] MEDS ORDERED: MULTIVITAMIN OR (16:16)
[2019-01-30] MEDS ORDERED: PRED10TA27 PO (16:17)
[2019-01-30] MEDS ORDERED: MIRALAX3350 N1 PO (16:17)
== END 2019-01-30 11:30 | DRG 698 ==
LOC: MED/SURG 14:44
PROVIDERS: ADMIT Internal Medicine
DX: T83.518A Infection and inflammatory reaction due to other urinary catheter, initial encounter (principal); L89.223 Pressure ulcer of left hip, stage 3; L89.894 Pressure ulcer of other site, stage 4; G82.20 Paraplegia, unspecified; G40.802 Other epilepsy, not intractable, without status epilepticus; N39.0 Urinary tract infection, site not specified; L89.210 Pressure ulcer of right hip, unstageable
CPT/HCPCS: 36415; 80053; 81000; 85027; J0713

== ENCOUNTER 2019-02-06 14:20 | Outpatient (CLI) | payer OTHER ==
[~2019-02-06 14:20] MED LIST changes: +ASPI325T40 PO; +FURO20TA67 PO; +K-TAB20 MEQ PO; +LEXAPRO20 MG; +MIRALAX3350 N1 PO; +MONT10TA PO; +ONDA4TAB3 PO; +RANI150T78 PO; +SPIR50TA8 PO
== END 2019-02-06 16:00 | disposition home or self-care (01) ==
LOC: LAB 14:20
DX: L53.9 Erythematous condition, unspecified (principal); T81.89XA Other complications of procedures, not elsewhere classified, initial encounter
CPT/HCPCS: 87070; 87077; 87185; 87186; 87205

== ENCOUNTER 2019-02-19 17:25 | Inpatient (IN) | payer OTHER | END 2019-03-21 13:01 | disposition still patient (30) | LOC: PAVC 17:25 | PROVIDERS: ADMIT Internal Medicine ==

== ENCOUNTER 2019-03-04 13:08 | Outpatient (CLI) | payer OTHER | END 2019-03-04 23:30 | disposition home or self-care (01) | LOC: LAB 13:08 | DX: R82.90 Unspecified abnormal findings in urine (principal) | CPT/HCPCS: 81000; 87077; 87086; 87088; 87186 ==

== ENCOUNTER 2019-03-16 06:22 | Outpatient (CLI) | payer OTHER | END 2019-03-16 19:43 | disposition home or self-care (01) | LOC: LAB 06:22 | DX: S81.802A Unspecified open wound, left lower leg, initial encounter (principal) | CPT/HCPCS: 87070; 87077; 87185; 87186; 87205 ==

== ENCOUNTER 2019-03-21 13:09 | Inpatient (IN) | payer OTHER | END 2019-04-21 12:20 | disposition still patient (30) | LOC: PAVC 13:09 | PROVIDERS: ADMIT Internal Medicine ==

== ENCOUNTER 2019-04-21 14:00 | Inpatient (IN) | payer OTHER | END 2019-05-21 08:00 | disposition still patient (30) | LOC: PAVC 14:00 | PROVIDERS: ADMIT Internal Medicine ==

== ENCOUNTER → 2019-05-13 | Outpatient (CLI) | payer OTHER | LOC: LAB 05:24 | DX: S81.802A Unspecified open wound, left lower leg, initial encounter (principal) | CPT/HCPCS: 87070; 87077; 87186; 87205 ==

== ENCOUNTER 2019-05-21 10:00 | Inpatient (IN) | payer OTHER | END 2019-06-21 09:33 | disposition still patient (30) | LOC: PAVC 10:00 | PROVIDERS: ADMIT Internal Medicine ==

== ENCOUNTER 2019-06-17 13:13 | Outpatient (CLI) | payer OTHER | END 2019-06-17 20:49 | disposition home or self-care (01) | LOC: LABW 13:13 | DX: S81.802A Unspecified open wound, left lower leg, initial encounter (principal) | CPT/HCPCS: 87070; 87205 ==

== ENCOUNTER 2019-06-21 09:39 | Inpatient (IN) | payer OTHER | END 2019-07-22 10:43 | disposition still patient (30) | LOC: PAVC 09:39 | PROVIDERS: ADMIT Internal Medicine ==

== ENCOUNTER 2019-06-21 16:03 | Outpatient (CLI) | payer OTHER ==
[2019-06-21 19:28] LABS: PLATELET COUNT 352 K/uL (142-355)
[2019-06-21 19:29] LABS: PARTIAL THROMBOPLASTIN TIME 28.6 SECONDS (24.5-33.6)
== END 2019-06-21 22:01 | disposition home or self-care (01) ==
LOC: LABW 16:03
PROVIDERS: Internal Medicine
DX: Z48.817 Encounter for surgical aftercare following surgery on the skin and subcutaneous tissue (principal); R68.89 Other general symptoms and signs; R79.89 Other specified abnormal findings of blood chemistry; Z51.81 Encounter for therapeutic drug level monitoring
CPT/HCPCS: 80048; 85027; 85610; 85730

== ENCOUNTER 2019-06-22 09:04 | Day surgery (SDC) | payer OTHER ==
[~2019-06-22] VITALS: Ht 30.5 cm; Wt 0.5 kg
== END 2019-06-22 13:32 ==
LOC: OR 09:04
PROC: 0KBT0ZZ Excision of Left Lower Leg Muscle, Open Approach (ICD-10-PCS; principal; 2019-06-22)
DX: S81.802A Unspecified open wound, left lower leg, initial encounter (principal); L08.9 Local infection of the skin and subcutaneous tissue, unspecified; B96.20 Unspecified Escherichia coli [E. coli] as the cause of diseases classified elsewhere; B96.4 Proteus (mirabilis) (morganii) as the cause of diseases classified elsewhere; I96 Gangrene, not elsewhere classified; G82.20 Paraplegia, unspecified
CPT/HCPCS: 87070; 87076; 87077; 87186; 87205; J2001; J2250; J2405; J2704

== ENCOUNTER 2019-06-23 05:08 | Outpatient (CLI) | payer OTHER ==
[2019-06-23 06:20] LABS: PLATELET COUNT 422 K/uL (142-355)
== END 2019-06-23 19:07 | disposition home or self-care (01) ==
LOC: LAB 05:08
PROVIDERS: Internal Medicine
DX: R62.7 Adult failure to thrive (principal)
CPT/HCPCS: 80053; 85027; 85651; 86140

== ENCOUNTER 2019-07-22 10:56 | Inpatient (IN) | payer OTHER | END 2019-08-20 14:14 | disposition still patient (30) | LOC: PAVC 10:56 | PROVIDERS: ADMIT Internal Medicine ==

== ENCOUNTER 2019-07-26 09:47 | Outpatient (CLI) | payer OTHER | END 2019-07-26 22:28 | disposition home or self-care (01) | LOC: MRI 09:47 | DX: L02.415 Cutaneous abscess of right lower limb (principal); L89.210 Pressure ulcer of right hip, unstageable ==

== ENCOUNTER 2019-08-03 08:58 | Outpatient (CLI) | payer OTHER | END 2019-08-03 19:45 | disposition home or self-care (01) | LOC: MRI 08:58 | DX: L02.415 Cutaneous abscess of right lower limb (principal); L89.210 Pressure ulcer of right hip, unstageable ==

== ENCOUNTER 2019-08-17 01:16 | Outpatient (CLI) | payer OTHER ==
[2019-08-17 02:45] LABS: PLATELET COUNT 316 K/uL (142-355)
[2019-08-17 04:24] LABS: POTASSIUM 3.4 mmol/L (3.6-5.2)
== END 2019-08-17 20:52 | disposition home or self-care (01) ==
LOC: LAB 01:16
PROVIDERS: Internal Medicine
DX: Z51.81 Encounter for therapeutic drug level monitoring (principal)
CPT/HCPCS: 80053; 82550; 85027; 85651; 86140

== ENCOUNTER 2019-08-20 14:18 | Inpatient (IN) | payer OTHER ==
[2019-08-30] MEDS ORDERED: ALUMSUS6 PO (05:20)
[2019-08-30] MEDS ORDERED: MAGNSUS68 PO (05:22)
[2019-08-30] MEDS ORDERED: MIRALAX3350 N1 PO (05:23)
[2019-08-30] MEDS ORDERED: FIORICET 50-3001 CAP PO (05:24)
[2019-08-30] MEDS ORDERED: JUVE1 PO (05:27)
[2019-08-30] MEDS ORDERED: BENEPROTEIN6 GM PO (05:29)
[2019-08-30] MEDS ORDERED: [UNRECOGNIZED DRUG - OTHER] PO (05:35)
[2019-08-30] MEDS ORDERED: FURO40TA93 PO (05:37)
[2019-08-30] MEDS ORDERED: OXYCONTIN30 MG PO (05:40)
[2019-08-30] MEDS ORDERED: AZO CRANBERY UR1 CAP PO (05:43)
[2019-08-30] MEDS ORDERED: EQ ACETAMINOPH500 MG PO (06:02)
[2019-08-30] MEDS ORDERED: ONDA4TAB3 PO (06:04)
== END 2019-09-20 11:52 | disposition still patient (30) ==
LOC: PAVC 14:18
PROVIDERS: ADMIT Internal Medicine

== ENCOUNTER 2019-08-24 22:47 | Outpatient (CLI) | payer OTHER ==
[2019-08-24 23:42] LABS: POTASSIUM 3.4 mmol/L (3.6-5.2)
[2019-08-24 23:48] LABS: PLATELET COUNT 298 K/uL (142-355)
== END 2019-08-24 23:23 | disposition home or self-care (01) ==
LOC: LAB 22:47
PROVIDERS: Internal Medicine
DX: L03.115 Cellulitis of right lower limb (principal); R62.7 Adult failure to thrive; G58.8 Other specified mononeuropathies
CPT/HCPCS: 80053; 82550; 85027; 85651; 86140

== ENCOUNTER 2019-08-28 08:43 | Day surgery (SDC) | payer OTHER ==
[~2019-08-28] VITALS: Ht 30.5 cm; Wt 0.0 kg
== END 2019-08-28 14:02 ==
LOC: OR 08:43
PROC: 05HM33Z Insertion of Infusion Device into Right Internal Jugular Vein, Percutaneous Approach (ICD-10-PCS; principal; 2019-08-28)
PROC: B543ZZA Ultrasonography of Right Jugular Veins, Guidance (ICD-10-PCS; 2019-08-28)
PROC: 0YJ Anatomical Regions, Lower Extremities, Inspection (ICD-10-PCS; 2019-08-28)
DX: I87.8 Other specified disorders of veins (principal); M86.8X8 Other osteomyelitis, other site; L89.214 Pressure ulcer of right hip, stage 4
CPT/HCPCS: 87070; 87205; C1788; J0132; J0690; J1170; J1644; J2001; J2250; J2405; J2704; J2765; J3010; J3490; Q9966

== ENCOUNTER 2019-08-29 18:08 | Outpatient (CLI) | payer OTHER ==
[2019-08-30] MEDS ORDERED: ALUMSUS6 PO (05:20)
[2019-08-30] MEDS ORDERED: MAGNSUS68 PO (05:22)
[2019-08-30] MEDS ORDERED: MIRALAX3350 N1 PO (05:23)
[2019-08-30] MEDS ORDERED: FIORICET 50-3001 CAP PO (05:24)
[2019-08-30] MEDS ORDERED: JUVE1 PO (05:27)
[2019-08-30] MEDS ORDERED: BENEPROTEIN6 GM PO (05:29)
[2019-08-30] MEDS ORDERED: [UNRECOGNIZED DRUG - OTHER] PO (05:35)
[2019-08-30] MEDS ORDERED: FURO40TA93 PO (05:37)
[2019-08-30] MEDS ORDERED: OXYCONTIN30 MG PO (05:40)
[2019-08-30] MEDS ORDERED: AZO CRANBERY UR1 CAP PO (05:43)
[2019-08-30] MEDS ORDERED: EQ ACETAMINOPH500 MG PO (06:02)
[2019-08-30] MEDS ORDERED: ONDA4TAB3 PO (06:04)
== END 2019-08-29 19:09 | disposition home or self-care (01) ==
LOC: LABW 18:08
DX: J10.1 Influenza due to other identified influenza virus with other respiratory manifestations (principal)
CPT/HCPCS: 87502

== ENCOUNTER 2019-08-30 01:38 | Inpatient (IN) | payer OTHER ==
[~2019-08-30] VITALS: Ht 190.5 cm; Wt 75.0 kg
[2019-08-30 02:41] VITALS: BP 114/71; TEMP 99.6; Ht 190.5 cm; Wt 75.0 kg
[2019-08-30 03:54] LABS: PLATELET COUNT 155 K/uL (142-355)
[2019-08-30 03:56] LABS: POTASSIUM 3.6 mmol/L (3.6-5.2)
[2019-08-30] MEDS ORDERED: ALUMSUS6 PO (05:20)
[2019-08-30] MEDS ORDERED: MAGNSUS68 PO (05:22)
[2019-08-30] MEDS ORDERED: MIRALAX3350 N1 PO (05:23)
[2019-08-30] MEDS ORDERED: FIORICET 50-3001 CAP PO (05:24)
[2019-08-30] MEDS ORDERED: JUVE1 PO (05:27)
[2019-08-30] MEDS ORDERED: BENEPROTEIN6 GM PO (05:29)
[2019-08-30] MEDS ORDERED: [UNRECOGNIZED DRUG - OTHER] PO (05:35)
[2019-08-30] MEDS ORDERED: FURO40TA93 PO (05:37)
[2019-08-30] MEDS ORDERED: OXYCONTIN30 MG PO (05:40)
[2019-08-30] MEDS ORDERED: AZO CRANBERY UR1 CAP PO (05:43)
[2019-08-30] MEDS ORDERED: EQ ACETAMINOPH500 MG PO (06:02)
[2019-08-30] MEDS ORDERED: ONDA4TAB3 PO (06:04)
[2019-08-30 08:00] VITALS: BP 96/55; TEMP 99.3
[2019-08-30 12:00] VITALS: BP 104/49; TEMP 99.2
[2019-08-30 16:00] VITALS: BP 104/58; TEMP 99.2
[2019-08-30 19:48] VITALS: BP 105/46; TEMP 99
[2019-08-31 00:23] VITALS: BP 92/48; TEMP 100.2
[2019-08-31 03:53] VITALS: BP 96/41; TEMP 98.7
[2019-08-31 08:00] VITALS: BP 90/52; TEMP 100
[2019-08-31 12:00] VITALS: BP 96/55; TEMP 99.3
[2019-08-31 16:00] VITALS: BP 103/53; TEMP 99.1
[2019-08-31 20:09] VITALS: BP 113/63; TEMP 102.9
[2019-08-31 21:12] LABS: PLATELET COUNT 116 K/uL (142-355)
[2019-08-31 21:19] LABS: POTASSIUM 3.7 mmol/L (3.6-5.2)
[2019-09-01] VITALS (7 sets, daily range): BP systolic 85–116; BP diastolic 48–65; TEMP 97.5–103
[2019-09-02 04:01] VITALS: BP 96/56; TEMP 98
[2019-09-02 05:15] LABS: POTASSIUM 3.5 mmol/L (3.6-5.2)
[2019-09-02 07:05] LABS: PLATELET COUNT 92 K/uL (142-355)
[2019-09-02 08:00] VITALS: BP 95/57; TEMP 98.3
[2019-09-02 12:00] VITALS: BP 126/80; TEMP 98.3
[2019-09-02 16:00] VITALS: BP 112/67; TEMP 98
[2019-09-02 20:00] VITALS: BP 109/62; TEMP 99
[2019-09-02 23:59] VITALS: BP 109/55; TEMP 98.7
[2019-09-03 03:53] VITALS: BP 92/62; TEMP 98.9
[2019-09-03 05:39] LABS: PLATELET COUNT 101 K/uL (142-355); POTASSIUM 3.8 mmol/L (3.6-5.2)
[2019-09-03 08:00] VITALS: BP 100/52; TEMP 98.1
[2019-09-03 12:00] VITALS: BP 92/50; TEMP 98
[2019-09-03 16:00] VITALS: BP 100/58; TEMP 97.5
[2019-09-03 19:52] VITALS: BP 109/54; TEMP 98.3
[2019-09-03 23:54] VITALS: BP 94/53; TEMP 97.9
[2019-09-04 03:50] VITALS: BP 103/56; TEMP 97.7
[2019-09-04 05:58] LABS: PLATELET COUNT 117 K/uL (142-355)
[2019-09-04 06:04] LABS: POTASSIUM 4.1 mmol/L (3.6-5.2)
[2019-09-04 08:00] VITALS: BP 96/58; TEMP 97.6
[2019-09-04 12:00] VITALS: BP 94/55; TEMP 98.3
[2019-09-04 16:00] VITALS: BP 94/55; TEMP 98.3
[2019-09-04 19:57] VITALS: BP 94/57; TEMP 98
[2019-09-05] VITALS: BP 99/54; TEMP 98.1
[2019-09-05 04:00] VITALS: BP 124/76; TEMP 98
[2019-09-05 08:00] VITALS: BP 112/61; TEMP 97.7
[2019-09-05 12:20] VITALS: BP 117/68; TEMP 98.6
== END 2019-09-05 12:34 | DRG 539 ==
LOC: MED/SURG 01:38
PROVIDERS: Internal Medicine; ADMIT Internal Medicine
DX: M86.8X8 Other osteomyelitis, other site (principal); L89.214 Pressure ulcer of right hip, stage 4; L89.893 Pressure ulcer of other site, stage 3; N39.0 Urinary tract infection, site not specified; G82.20 Paraplegia, unspecified; T83.518A Infection and inflammatory reaction due to other urinary catheter, initial encounter; B96.20 Unspecified Escherichia coli [E. coli] as the cause of diseases classified elsewhere; G89.29 Other chronic pain; J30.89 Other allergic rhinitis; D69.6 Thrombocytopenia, unspecified; E86.0 Dehydration
CPT/HCPCS: 80048; 80053; 81000; 83605; 85007; 85027; 87040; 87502; 93005; 94668; J1642; J2020; J2185; J3370; J3490

== ENCOUNTER 2019-09-17 09:45 | Outpatient (CLI) | payer OTHER ==
[~2019-09-17 09:45] MED LIST changes: +AZO CRANBERY UR1 CAP PO; +BENEPROTEIN6 GM PO; +EQ ACETAMINOPH500 MG PO; +JUVE1 PO; +MAGNSUS68 PO; +OXYCONTIN30 MG PO; +[UNRECOGNIZED DRUG - OTHER] PO
== END 2019-09-17 19:11 | disposition home or self-care (01) ==
LOC: INF 09:45
DX: Z45.1 Encounter for adjustment and management of infusion pump (principal)
CPT/HCPCS: 96365; 96367; J1335; J2020

== ENCOUNTER → 2019-09-19 | Outpatient (CLI) | payer OTHER | LOC: INF 22:21 | DX: M86.9 Osteomyelitis, unspecified (principal); M87.9 Osteonecrosis, unspecified | CPT/HCPCS: 96365; J2020 ==

== ENCOUNTER 2019-09-20 12:28 | Inpatient (IN) | payer OTHER | END 2019-10-20 11:24 | disposition still patient (30) | LOC: PAVC 12:28 | PROVIDERS: ADMIT Internal Medicine ==

== ENCOUNTER 2019-10-20 11:25 | Inpatient (IN) | payer OTHER | END 2019-11-20 11:23 | disposition still patient (30) | LOC: PAVC 11:25 | PROVIDERS: ADMIT Internal Medicine | CPT/HCPCS: 87635; U0002 ==

== ENCOUNTER 2019-11-20 11:58 | Inpatient (IN) | payer OTHER | END 2019-12-20 11:54 | disposition still patient (30) | LOC: PAVC 11:58 | PROVIDERS: ADMIT Internal Medicine ==

== ENCOUNTER 2019-11-27 10:06 | Outpatient (CLI) | payer OTHER | END 2019-11-27 23:08 | disposition home or self-care (01) | LOC: US 10:06 | DX: I73.9 Peripheral vascular disease, unspecified (principal) ==

== ENCOUNTER 2019-11-28 10:53 | Outpatient (CLI) | payer OTHER ==
[2019-11-28 11:05] LABS: PLATELET COUNT 211 K/uL (142-355)
== END 2019-11-28 23:53 | disposition home or self-care (01) ==
LOC: LAB 10:53
PROVIDERS: Nurse Practitioner
DX: R89.9 Unspecified abnormal finding in specimens from other organs, systems and tissues (principal)
CPT/HCPCS: 85027; 87040

== ENCOUNTER → 2019-12-08 | Outpatient (CLI) | payer OTHER ==
[2019-12-08 11:02] LABS: POTASSIUM 3.6 mmol/L (3.6-5.2)
== END ==
LOC: LAB 10:38
PROVIDERS: Internal Medicine
DX: Z16.12 Extended spectrum beta lactamase (ESBL) resistance (principal)
CPT/HCPCS: 80048

== ENCOUNTER 2019-12-10 06:31 | Outpatient (CLI) | payer OTHER | END 2019-12-10 19:05 | disposition home or self-care (01) | LOC: LAB 06:31 | DX: Z16.12 Extended spectrum beta lactamase (ESBL) resistance (principal) | CPT/HCPCS: 80200 ==

== ENCOUNTER 2019-12-12 02:13 | Outpatient (CLI) | payer OTHER | END 2019-12-12 21:22 | disposition home or self-care (01) | LOC: LAB 02:13 | DX: Z51.81 Encounter for therapeutic drug level monitoring (principal) | CPT/HCPCS: 36415; 80200 ==

== ENCOUNTER 2019-12-20 08:49 | Outpatient (CLI) | payer OTHER ==
[2019-12-20 09:34] LABS: POTASSIUM 3.6 mmol/L (3.6-5.2)
[2019-12-20 09:55] LABS: PLATELET COUNT 207 K/uL (142-355)
== END 2019-12-20 22:03 | disposition home or self-care (01) ==
LOC: LAB 08:49
PROVIDERS: Internal Medicine
DX: R62.7 Adult failure to thrive (principal); M79.2 Neuralgia and neuritis, unspecified; L03.115 Cellulitis of right lower limb; E87.6 Hypokalemia
CPT/HCPCS: 80053; 85027

== ENCOUNTER 2019-12-20 12:19 | Inpatient (IN) | payer OTHER | END 2020-01-20 10:11 | disposition still patient (30) | LOC: PAVC 12:19 | PROVIDERS: ADMIT Internal Medicine ==

== ENCOUNTER 2019-12-27 13:03 | Outpatient (CLI) | payer OTHER | END 2019-12-27 21:33 | disposition home or self-care (01) | LOC: MRI 13:03 | DX: M86.68 Other chronic osteomyelitis, other site (principal); Z79.899 Other long term (current) drug therapy | CPT/HCPCS: A9576 ==

== ENCOUNTER 2019-12-28 09:10 | Outpatient (CLI) | payer OTHER | END 2019-12-28 21:50 | disposition home or self-care (01) | LOC: MRI 09:10 | DX: Z01.812 Encounter for preprocedural laboratory examination (principal); M86.68 Other chronic osteomyelitis, other site | CPT/HCPCS: 82565; 84520; A9576 ==

== ENCOUNTER 2019-12-29 08:55 | Outpatient (CLI) | payer OTHER | END 2019-12-29 18:57 | disposition home or self-care (01) | LOC: MRI 08:55 | DX: R94.4 Abnormal results of kidney function studies (principal) | CPT/HCPCS: 36415; 82565; 84520 ==

== ENCOUNTER 2020-01-10 05:44 | Outpatient (CLI) | payer OTHER | END 2020-01-10 19:00 | disposition home or self-care (01) | LOC: LAB 05:44 | DX: R77.0 Abnormality of albumin (principal); R73.09 Other abnormal glucose | CPT/HCPCS: 83036; 84134 ==

== ENCOUNTER 2020-01-11 08:15 | Day surgery (SDC) | payer OTHER ==
[2020-01-11 08:44] LABS: POTASSIUM 3.2 mmol/L (3.6-5.2)
[2020-01-11 08:54] LABS: PLATELET COUNT 195 K/uL (142-355)
== END 2020-01-11 12:17 ==
LOC: OR 08:15
PROVIDERS: Student in an Organized Health Care Education/Training Program
PROC: 0QBK0ZZ Excision of Left Fibula, Open Approach (ICD-10-PCS; principal; 2020-01-11)
DX: S81.802A Unspecified open wound, left lower leg, initial encounter (principal); M86.8X6 Other osteomyelitis, lower leg; G82.20 Paraplegia, unspecified; B95.61 Methicillin susceptible Staphylococcus aureus infection as the cause of diseases classified elsewhere; B95.2 Enterococcus as the cause of diseases classified elsewhere; B96.4 Proteus (mirabilis) (morganii) as the cause of diseases classified elsewhere
CPT/HCPCS: 80053; 85027; 87070; 87077; 87185; 87186; 87205; J1642; J3010; J3490

== ENCOUNTER 2020-01-20 10:42 | Inpatient (IN) | payer OTHER | END 2020-02-20 14:06 | disposition still patient (30) | LOC: PAVC 10:42 | PROVIDERS: ADMIT Internal Medicine ==

== ENCOUNTER 2020-01-24 05:58 | Outpatient (CLI) | payer OTHER ==
[2020-01-24 07:48] LABS: PLATELET COUNT 211 K/uL (142-355)
[2020-01-24 08:17] LABS: POTASSIUM 3.7 mmol/L (3.6-5.2)
== END 2020-01-24 19:41 | disposition home or self-care (01) ==
LOC: LAB 05:58
PROVIDERS: Internal Medicine
DX: Z79.2 Long term (current) use of antibiotics (principal); L89.894 Pressure ulcer of other site, stage 4
CPT/HCPCS: 80053; 82550; 85027; 85651; 86140

== ENCOUNTER 2020-02-09 13:32 | Outpatient (CLI) | payer OTHER | END 2020-02-09 20:50 | disposition home or self-care (01) | LOC: RESP 13:32 | DX: R79.9 Abnormal finding of blood chemistry, unspecified (principal) | CPT/HCPCS: 93005 ==

== ENCOUNTER 2020-02-14 06:09 | Outpatient (CLI) | payer OTHER ==
[2020-02-14 09:48] LABS: PLATELET COUNT 200 K/uL (142-355)
[2020-02-14 10:33] LABS: POTASSIUM 3.5 mmol/L (3.6-5.2)
== END 2020-02-14 21:57 | disposition home or self-care (01) ==
LOC: LAB 06:09
PROVIDERS: Internal Medicine
DX: L89.95 Pressure ulcer of unspecified site, unstageable (principal)
CPT/HCPCS: 80053; 82550; 85027; 85651

== ENCOUNTER 2020-02-20 15:00 | Inpatient (IN) | payer OTHER | END 2020-03-21 14:11 | disposition still patient (30) | LOC: PAVC 15:00 | PROVIDERS: ADMIT Internal Medicine ==

== ENCOUNTER 2020-03-06 07:50 | Outpatient (CLI) | payer OTHER ==
[2020-03-06 08:21] LABS: PLATELET COUNT 243 K/uL (142-355)
[2020-03-06 08:34] LABS: POTASSIUM 3.8 mmol/L (3.6-5.2)
== END 2020-03-06 20:08 | disposition home or self-care (01) ==
LOC: LAB 07:50
PROVIDERS: Internal Medicine
DX: L89.894 Pressure ulcer of other site, stage 4 (principal); Z79.2 Long term (current) use of antibiotics
CPT/HCPCS: 80053; 82550; 85027; 85651; 86140

== ENCOUNTER 2020-03-21 14:15 | Inpatient (IN) | payer OTHER | END 2020-04-21 08:00 | disposition still patient (30) | LOC: PAVC 14:15 | PROVIDERS: ADMIT Internal Medicine ==

== ENCOUNTER 2020-04-21 09:00 | Inpatient (IN) | payer OTHER | END 2020-05-21 12:26 | disposition still patient (30) | LOC: PAVC 09:00 | PROVIDERS: ADMIT Internal Medicine; ATTEND Internal Medicine ==

== ENCOUNTER 2020-05-21 13:06 | Inpatient (IN) | payer OTHER | END 2020-06-21 10:20 | disposition still patient (30) | LOC: PAVC 13:06 | PROVIDERS: ADMIT Internal Medicine; ATTEND Internal Medicine ==

== ENCOUNTER 2020-06-21 10:20 | Inpatient (IN) | payer OTHER | END 2020-07-22 15:32 | disposition still patient (30) | LOC: PAVC 10:20 | PROVIDERS: ADMIT Internal Medicine; ATTEND Internal Medicine ==

== ENCOUNTER 2020-06-24 12:03 | Outpatient (CLI) | payer OTHER ==
[2020-06-24 12:53] LABS: PLATELET COUNT 221 K/uL (142-355)
[2020-06-24 13:01] LABS: POTASSIUM 3.6 mmol/L (3.6-5.2)
== END 2020-06-24 21:10 | disposition home or self-care (01) ==
LOC: LAB 12:03
PROVIDERS: ATTEND Internal Medicine
DX: R62.7 Adult failure to thrive (principal); L03.115 Cellulitis of right lower limb; E87.6 Hypokalemia; M79.2 Neuralgia and neuritis, unspecified
CPT/HCPCS: 80053; 85027

== ENCOUNTER 2020-07-22 15:33 | Inpatient (IN) | payer OTHER ==
[2020-08-05] MEDS ORDERED: JUVE1 PO (10:00)
[2020-08-05] MEDS ORDERED: MORPHINE SULFAT30 M1 PO (10:04)
[2020-08-05] MEDS ORDERED: MOTRIN IB200 M1 PO (10:08)
[2020-08-07] MEDS ORDERED: LEVAQUIN250 MG PO (10:54)
== END 2020-08-19 11:19 | disposition still patient (30) ==
LOC: PAVC 15:33
PROVIDERS: ADMIT Internal Medicine; ATTEND Internal Medicine

== ENCOUNTER 2020-08-04 20:26 | Emergency (ER) | payer OTHER ==
[~2020-08-04] VITALS: Ht 190.5 cm; Wt 94.8 kg
[2020-08-04 20:26] VITALS: TEMP 98.4
[2020-08-04 21:56] VITALS: BP 121/75
[2020-08-05] MEDS ORDERED: JUVE1 PO (10:00)
[2020-08-05] MEDS ORDERED: MORPHINE SULFAT30 M1 PO (10:04)
[2020-08-05] MEDS ORDERED: MOTRIN IB200 M1 PO (10:08)
== END 2020-08-04 21:56 ==
LOC: ED 20:26
PROC: 0T9B70Z Drainage of Bladder with Drainage Device, Via Natural or Artificial Opening (ICD-10-PCS; principal; 2020-08-04)
DX: N36.8 Other specified disorders of urethra (principal)
CPT/HCPCS: 51702; 99282

== ENCOUNTER 2020-08-04 23:58 | Observation (INO) | payer OTHER ==
[~2020-08-04] VITALS: Ht 190.5 cm; Wt 99.8 kg
[2020-08-04 23:58] VITALS: BP 134/74; TEMP 99.9
[2020-08-05] VITALS (18 sets, daily range): BP systolic 92–147; BP diastolic 40–82; TEMP 97.8–100.7; Ht 190.5 cm; Wt 99.8 kg
[2020-08-05 01:18] LABS: PLATELET COUNT 252 K/uL (142-355)
[2020-08-05 01:21] LABS: POTASSIUM 3.7 mmol/L (3.6-5.2)
[2020-08-05 01:46] LABS: PARTIAL THROMBOPLASTIN TIME 23.9 SECONDS (24.5-33.6)
[2020-08-05 07:08] LABS: PLATELET COUNT 210 K/uL (142-355)
[2020-08-05 07:41] LABS: POTASSIUM 3.5 mmol/L (3.6-5.2)
[2020-08-05] MEDS ORDERED: JUVE1 PO ×2 (10:00)
[2020-08-05] MEDS ORDERED: MORPHINE SULFAT30 M1 PO ×2 (10:04)
[2020-08-05] MEDS ORDERED: MOTRIN IB200 M1 PO ×2 (10:08)
[2020-08-06] VITALS (7 sets, daily range): BP systolic 109–119; BP diastolic 65–70; TEMP 97.6–100.7
[2020-08-06 05:10] LABS: PLATELET COUNT 161 K/uL (142-355)
[2020-08-06 05:24] LABS: POTASSIUM 3.4 mmol/L (3.6-5.2)
[2020-08-07] VITALS: BP 121/78; TEMP 97.9
[2020-08-07 04:00] VITALS: BP 117/67; TEMP 98.1
[2020-08-07 08:00] VITALS: BP 110/59; TEMP 98.5
[2020-08-07] MEDS ORDERED: LEVAQUIN250 MG PO ×2 (10:54)
[2020-08-07 12:00] VITALS: BP 108/63; TEMP 98.3
== END 2020-08-07 14:18 ==
LOC: ED 23:58 → MED/SURG 08-05 03:04
PROVIDERS: ATTEND Internal Medicine
DX: R50.9 Fever, unspecified (principal); R00.0 Tachycardia, unspecified; D72.828 Other elevated white blood cell count; L89.90 Pressure ulcer of unspecified site, unspecified stage; G82.20 Paraplegia, unspecified; K21.9 Gastro-esophageal reflux disease without esophagitis; F32.89 Other specified depressive episodes; R51.9 Headache, unspecified; J30.89 Other allergic rhinitis; N39.8 Other specified disorders of urinary system; D58.2 Other hemoglobinopathies
CPT/HCPCS: 36415; 36591; 51702; 80053; 81000; 83605; 85014; 85018; 85027; 85610; 85730; 87040; 87635; 96360; 96361; 96365; 96366; 96367; 96372; 99220; 99282; 99284; G0378; J0696; J1642; U0003

== ENCOUNTER 2020-08-07 17:01 | Outpatient (CLI) | payer OTHER ==
[~2020-08-07 17:01] MED LIST changes: +LEVAQUIN250 MG PO; +MORPHINE SULFAT30 M1 PO; +MOTRIN IB200 M1 PO
== END 2020-08-07 22:09 | disposition home or self-care (01) ==
LOC: LAB 17:01
PROVIDERS: ATTEND Internal Medicine
DX: D58.2 Other hemoglobinopathies (principal)
CPT/HCPCS: 85014; 85018

== ENCOUNTER 2020-08-08 05:37 | Outpatient (CLI) | payer OTHER | END 2020-08-08 21:01 | disposition home or self-care (01) | LOC: LAB 05:37 → LABW 05:37 | PROVIDERS: ATTEND Internal Medicine | DX: R71.0 Precipitous drop in hematocrit (principal) | CPT/HCPCS: 85014; 85018 ==

== ENCOUNTER 2020-08-09 06:30 | Outpatient (CLI) | payer OTHER | END 2020-08-09 19:17 | disposition home or self-care (01) | LOC: LAB 06:30 | PROVIDERS: ATTEND Internal Medicine | DX: R71.0 Precipitous drop in hematocrit (principal) | CPT/HCPCS: 85014; 85018 ==

== ENCOUNTER 2020-08-10 08:23 | Outpatient (CLI) | payer OTHER | END 2020-08-10 19:05 | disposition home or self-care (01) | LOC: LAB 08:23 | PROVIDERS: ATTEND Internal Medicine | DX: R71.0 Precipitous drop in hematocrit (principal); R97.20 Elevated prostate specific antigen [PSA] | CPT/HCPCS: 84153; 85014; 85018 ==

== ENCOUNTER 2020-08-19 11:22 | Inpatient (IN) | payer OTHER | END 2020-09-19 13:58 | disposition still patient (30) | LOC: PAVC 11:22 | PROVIDERS: ADMIT Internal Medicine; ATTEND Internal Medicine ==

== ENCOUNTER 2020-09-19 13:59 | Inpatient (IN) | payer OTHER ==
[~2020-09-19] VITALS: Ht 195.6 cm; Wt 93.6 kg
== END 2020-10-19 11:26 | disposition still patient (30) ==
LOC: PAVC 13:59
PROVIDERS: ADMIT Internal Medicine; ATTEND Internal Medicine

== ENCOUNTER 2020-10-11 15:03 | Outpatient (CLI) | payer OTHER ==
[~2020-10-11] VITALS: Ht 195.6 cm; Wt 93.6 kg
== END 2020-10-11 16:45 | disposition home or self-care (01) ==
LOC: INF 15:03
PROVIDERS: ATTEND Internal Medicine
DX: N39.0 Urinary tract infection, site not specified (principal); B96.29 Other Escherichia coli [E. coli] as the cause of diseases classified elsewhere
CPT/HCPCS: 96365; J1580; J1642

== ENCOUNTER 2020-10-11 20:32 | Emergency (ER) | payer OTHER ==
[~2020-10-11] VITALS: Ht 190.5 cm; Wt 93.4 kg
[2020-10-11 21:42] LABS: PLATELET COUNT 208 K/uL (142-355)
[2020-10-11 21:49] LABS: POTASSIUM 3.4 mmol/L (3.6-5.2); SODIUM 134 mmol/L (136-145)
[2020-10-11 23:30] VITALS: BP 101/66; TEMP 99
== END 2020-10-11 23:30 | disposition short-term general hospital (02) ==
LOC: ED 20:32
PROVIDERS: Emergency Medicine Emergency Medical Services
DX: T80.211A Bloodstream infection due to central venous catheter, initial encounter (principal); N39.0 Urinary tract infection, site not specified
CPT/HCPCS: 36415; 36591; 36600; 80053; 81000; 82805; 83605; 84484; 85027; 85610; 87040; 87077; 87086; 87088; 87186; 87205; 93005; 96360; 96361; 96365; 99284; J2543

== ENCOUNTER 2020-10-19 11:52 | Inpatient (IN) | payer OTHER | END 2020-11-19 15:45 | disposition still patient (30) | LOC: PAVC 11:52 | PROVIDERS: ADMIT Internal Medicine; ATTEND Internal Medicine ==

== ENCOUNTER 2020-11-19 15:56 | Inpatient (IN) | payer OTHER | END 2020-12-19 08:00 | disposition still patient (30) | LOC: PAVC 15:56 | PROVIDERS: ADMIT Internal Medicine; ATTEND Internal Medicine ==

== ENCOUNTER 2020-12-19 09:00 | Inpatient (IN) | payer OTHER | END 2021-01-03 13:00 | disposition home or self-care (01) | LOC: PAVC 09:00 | PROVIDERS: ADMIT Internal Medicine; ATTEND Internal Medicine ==

== ENCOUNTER 2020-12-24 05:37 | Outpatient (CLI) | payer OTHER ==
[2020-12-24 08:36] LABS: POTASSIUM 3.8 mmol/L (3.6-5.2)
[2020-12-24 12:25] LABS: PLATELET COUNT 248 K/uL (142-355)
== END 2020-12-24 19:05 | disposition home or self-care (01) ==
LOC: LAB 05:37
PROVIDERS: ATTEND Internal Medicine
DX: M79.2 Neuralgia and neuritis, unspecified (principal); E87.6 Hypokalemia; L03.115 Cellulitis of right lower limb; R62.7 Adult failure to thrive
CPT/HCPCS: 80053; 85027

== ENCOUNTER 2021-02-13 15:01 | Emergency (ER) | payer OTHER ==
[~2021-02-13] VITALS: Ht 190.5 cm; Wt 93.4 kg
[2021-02-13 15:18] VITALS: BP 129/85; TEMP 98
== END 2021-02-13 19:00 | disposition home or self-care (01) ==
LOC: ED 15:01
DX: Z53.21 Procedure and treatment not carried out due to patient leaving prior to being seen by health care provider (principal)
CPT/HCPCS: 99281

== ENCOUNTER 2022-01-14 21:10 | Emergency (ER) | payer OTHER ==
[~2022-01-14] VITALS: Ht 190.5 cm; Wt 75.8 kg
[2022-01-14 22:16] LABS: PLATELET COUNT 434 K/uL (142-355)
[2022-01-14 22:29] LABS: POTASSIUM 3.3 mmol/L (3.6-5.2)
[2022-01-15 00:35] VITALS: BP 11/69
== END 2022-01-15 00:30 | disposition home or self-care (01) ==
LOC: ED 21:10
PROVIDERS: Emergency Medicine Emergency Medical Services
DX: R11.2 Nausea with vomiting, unspecified (principal); R19.7 Diarrhea, unspecified; K80.20 Calculus of gallbladder without cholecystitis without obstruction; N39.0 Urinary tract infection, site not specified
CPT/HCPCS: 36415; 80053; 81002; 81015; 82150; 83690; 83735; 85027; 87040; 87077; 87086; 87088; 87186; 96360; 96365; 96375; 99284; J0696; J2405

== ENCOUNTER 2022-04-27 07:54 | Outpatient (CLI) | payer OTHER | END 2022-04-27 19:36 | disposition home or self-care (01) | LOC: NM 07:54 | PROVIDERS: ATTEND Family Medicine | DX: M86.68 Other chronic osteomyelitis, other site (principal); L89.899 Pressure ulcer of other site, unspecified stage | CPT/HCPCS: A9561 ==

== ENCOUNTER 2022-06-08 11:40 | Outpatient (CLI) | payer OTHER ==
[2022-06-08 14:49] LABS: PLATELET COUNT 355 K/uL (142-355)
[2022-06-08 15:11] LABS: POTASSIUM 3.3 mmol/L (3.6-5.2)
== END 2022-06-08 18:58 | disposition home or self-care (01) ==
LOC: US 11:40
PROVIDERS: ATTEND Student in an Organized Health Care Education/Training Program
DX: M79.662 Pain in left lower leg (principal); L89.93 Pressure ulcer of unspecified site, stage 3; Z11.52 Encounter for screening for COVID-19; R50.9 Fever, unspecified
CPT/HCPCS: 36415; 80053; 85027; 85652; 86141; 87502; 87635; 87651; U0003

== ENCOUNTER 2022-06-19 14:24 | Outpatient (CLI) | payer OTHER | END 2022-06-19 23:39 | disposition home or self-care (01) | LOC: RAD 14:24 | PROVIDERS: ATTEND Family Medicine | DX: Z76.89 Persons encountering health services in other specified circumstances (principal) ==

== ENCOUNTER 2022-11-18 10:39 | Outpatient (CLI) | payer OTHER | END 2022-11-18 18:55 | LOC: NM 10:39 | PROVIDERS: ATTEND Family Medicine | DX: M86.352 Chronic multifocal osteomyelitis, left femur (principal) | CPT/HCPCS: A9561 ==

== ENCOUNTER 2023-08-03 17:56 | Emergency (ER) | payer OTHER ==
[~2023-08-03] VITALS: Ht 190.5 cm; Wt 71.7 kg
[2023-08-03 17:56] VITALS: TEMP 98.9
[2023-08-03] MEDS ORDERED: SODIUM CHLORIDE 0.9% 1,000 ML IV ONE ×2 (19:01→19:43)
[2023-08-03] MEDS ORDERED: TORADOL 30MG/ML INJ IV ONE (19:02)
[2023-08-03] MEDS ORDERED: TORADOL 30MG/ML INJ ONE (19:43)
[2023-08-03 19:57] LABS: PLATELET COUNT 394 K/uL (142-355)
[2023-08-03 20:07] LABS: POTASSIUM 3.4 mmol/L (3.6-5.2)
[2023-08-03] MEDS ORDERED: NITROFURANTOIN PO ONE ×2 (22:42→23:04)
[2023-08-03 23:20] VITALS: BP 131/74
[2023-08-03] MEDS ORDERED: HEPARIN SODIUM ONE (23:21)
[2023-08-03] MEDS ORDERED: [UNRECOGNIZED DRUG - OTHER] ONE (23:21)
[2023-08-04] MEDS ORDERED: [UNRECOGNIZED DRUG - OTHER] INJ ONE (04:07)
[2023-08-04] MEDS ORDERED: HEPARIN SODIUM INJ ONE (04:07)
== END 2023-08-03 23:20 | disposition home or self-care (01) ==
LOC: ED 17:56
PROVIDERS: Family Medicine
DX: F11.23 Opioid dependence with withdrawal (principal); R19.7 Diarrhea, unspecified; T83.518A Infection and inflammatory reaction due to other urinary catheter, initial encounter
CPT/HCPCS: 36415; 80053; 81000; 85027; 87077; 87086; 87088; 87186; 96361; 96365; 96374; 99284; J1642; J1885